=== PATIENT | male | born 1960 | race Caucasian/White ===

== ENCOUNTER 2019-12-12 05:38 | Emergency (ER) | payer OTHER ==
[~2019-12-12] VITALS: Ht 175.3 cm; Wt 113.4 kg
[2019-12-12] MEDS ORDERED: LIPITOR 20 MG T20 M1 PO (05:47)
[2019-12-12] MEDS ORDERED: LISINOPRIL2.5 MG PO (05:47)
[2019-12-12] MEDS ORDERED: VITAMIN D33000 UNIT PO (05:48)
[2019-12-12] MEDS ORDERED: ZOLOFT50 M1 PO (05:48)
[2019-12-12] MEDS ORDERED: FLEXERIL PO (06:24)
[2019-12-12] MEDS ORDERED: NORCO 5-325 TA1 EAC1 PO (06:24)
[2019-12-12 06:29] VITALS: BP 149/75
== END 2019-12-12 06:29 | disposition home or self-care (01) ==
LOC: M.ERS 05:38
DX: M54.5 Low back pain (principal); I10 Essential (primary) hypertension

== ENCOUNTER 2021-11-06 20:46 | Emergency (ER) | payer OTHER ==
[~2021-11-06] VITALS: Ht 175.3 cm; Wt 113.4 kg
[~2021-11-06 20:46] MED LIST: FLEXERIL PO; LIPITOR 20 MG T20 M1 PO; LISINOPRIL2.5 MG PO; NORCO 5-325 TA1 EAC1 PO; VITAMIN D33000 UNIT PO; ZOLOFT50 M1 PO
[2021-11-06] MEDS ORDERED: JARDIANCE10 MG PO (20:52)
[2021-11-06 22:36] VITALS: BP 144/92
== END 2021-11-06 22:36 | disposition home or self-care (01) ==
LOC: M.ERS 20:46
DX: S61.200A Unspecified open wound of right index finger without damage to nail, initial encounter (principal); I10 Essential (primary) hypertension; E78.00 Pure hypercholesterolemia, unspecified; Z85.46 Personal history of malignant neoplasm of prostate; Z79.899 Other long term (current) drug therapy; X58.XXXA Exposure to other specified factors, initial encounter; Y93.89 Activity, other specified; Y92.89 Other specified places as the place of occurrence of the external cause; Y99.8 Other external cause status